=== PATIENT | male | born 2000 | race Two or more races ===

== ENCOUNTER 2021-10-24 12:08 | Emergency (ER) | payer OTHER ==
[~2021-10-24] VITALS: Ht 175.3 cm; Wt 72.6 kg
[2021-10-24 13:59] VITALS: BP 101/59
[2021-10-24] MEDS ORDERED: IBUP800T27 PO (14:16)
== END 2021-10-24 15:26 | disposition home or self-care (01) ==
LOC: EDBD 12:08 → ER 12:08
DX: S42.022A Displaced fracture of shaft of left clavicle, initial encounter for closed fracture (principal); V86.06XA Driver of dirt bike or motor/cross bike injured in traffic accident, initial encounter; Y93.89 Activity, other specified; Y92.89 Other specified places as the place of occurrence of the external cause; Y99.8 Other external cause status
CPT/HCPCS: 73030